=== PATIENT | female | born 1965 | race Two or more races ===

== ENCOUNTER 2017-02-22 10:15 | Emergency (ER) | payer OTHER ==
--- NOTE | 2017-02-22 11:49 | UC ---
Throat Pain/Nasal Chai HPI - HPI Summary HPI Summary: right lateral epicondyle pain and bottom of right foot pain has been going on for 5 days--no known trauma - History of Current Complaint Hx Obtained From: Patient Hx Last Menstrual Period: IUD ?: No Onset/Duration: Sudden Onset, Lasting Days - 5, Still Present Severity: Moderate Cough: None Associated Signs & Symptoms: Positive: Negative <Abimbola Ronquillo - Last Filed: 02/22/17 18:24> <Lian Dumont - Last Filed: 02/23/17 06:57> - History of Current Complaint Chief Complaint: UCGeneralIllness Stated Complaint: ARM/LEG PAIN Time Seen by Provider: 02/22/17 11:30 - Allergies/Home Medications Allergies/Adverse Reactions: Allergies Allergy/AdvReac Type Severity Reaction Status Date / Time No Known Allergies Allergy Verified 02/22/17 10:23 Home Medications: Home Medications Labetalol TAB* [Trandate TAB*] 1 tab PO DAILY 02/22/17 [History Confirmed ] PMH/Surg Hx/FS Hx/Imm Hx Previously Healthy: No Cardiovascular History: Hypertension Other History Of: Negative For: HIV, Hepatitis B, Hepatitis C, Anticoagulant Therapy - Surgical History Surgical History: Yes Surgery Procedure, Year, and Place: appendix. gallbladder. x3 - Family History Known Family History: Positive: None, Hypertension Negative: Cardiac Disease - Social History Occupation: Employed Full-time Lives: With Family Alcohol Use: Occasionally Alcohol Amount: once a month Substance Use Type: None Substance Use Comment - Amount & Last Used: norco Smoking Status (MU): Former Smoker Type: Cigarettes Length of Time of Smoking/Using Tobacco: 20 years Have You Smoked in the Last Year: No When Did the Patient Quit Smoking/Using Tobacco: 2007 - Immunization History Most Recent Influenza Vaccination: no up to date Most Recent Tetanus Shot: unsure Most Recent Pneumonia Vaccination: none <Abimbola Ronquillo - Last Filed: 02/22/17 18:24> Review of Systems Constitutional: Negative Skin: Negative Eyes: Negative ENT: Negative Respiratory: Negative Cardiovascular: Negative Gastrointestinal: Negative Genitourinary: Negative Motor: Negative Neurovascular: Negative Musculoskeletal: Arthralgia - right foot and elbow Neurological: Negative Psychological: Negative All Other Systems Reviewed And Are Negative: Yes <Abimbola Ronquillo - Last Filed: 02/22/17 18:24> Physical Exam Triage Information Reviewed: Yes Appearance: Well-Appearing, Well-Nourished, Pain Distress - mild Vital Signs: Initial Vital Signs Temp 98.5 F 02/22/17 10:18 Pulse 67 02/22/17 10:18 Resp 18 02/22/17 10:18 BP 188/111 02/22/17 10:18 Pulse Ox 97 02/22/17 10:18 Vital Signs Reviewed: Yes Eye Exam: Normal Eyes: Positive: Conjunctiva Clear ENT Exam: Normal ENT: Positive: Normal ENT inspection, Hearing grossly normal. Negative: Nasal congestion, Nasal drainage, Trismus, Muffled/hoarse voice Dental Exam: Normal Neck exam: Normal Neck: Positive: Supple, Nontender Respiratory Exam: Normal Respiratory: Positive: Chest non-tender, No respiratory distress, No accessory muscle use Cardiovascular Exam: Normal Cardiovascular: Positive: RRR, Pulses Normal, Brisk Capillary Refill Musculoskeletal Exam: Normal Musculoskeletal: Positive: Strength Intact, ROM Intact, No Edema Neurological Exam: Normal Neurological: Positive: Alert, Muscle Tone Normal Psychological Exam: Normal Psychological: Positive: Normal Response To Family, Age Appropriate Behavior Skin Exam: Normal <Abimbola Ronquillo - Last Filed: 02/22/17 18:24> Vital Signs: Initial Vital Signs Temp 98.5 F 02/22/17 10:18 Pulse 67 02/22/17 10:18 Resp 18 02/22/17 10:18 BP 188/111 02/22/17 10:18 Pulse Ox 97 02/22/17 10:18 <Lian Dumont - Last Filed: 02/23/17 06:57> Throat Pain/Nasal Course/Dx - Course Assessment/Plan: cam boot, tendon wrap, short course of po steroids , rest off work for 3 days, follow with ortho, plantar tendon exercises - Differential Dx/Diagnosis Differential Diagnosis/HQI/PQRI: Other - chronic orthopedic issues Provider Diagnoses: Right lateral epicondolytis, right plantar tendonitis <Abimbola Ronquillo - Last Filed: 02/22/17 18:24> Discharge <Abimbola Ronquillo - Last Filed: 02/22/17 18:24> <Lian Dumont - Last Filed: 02/23/17 06:57> - Discharge Plan Condition: Stable Disposition: HOME Prescriptions: Methylprednisolone [Medrol Dosepak 4 MG*] 1 pkt PO .SEE GIANCARLO INSTRUCTION #1 giancarlo Patient Education Materials: Methylprednisolone (By mouth), Plantar Fasciitis Exercises (GEN), Tennis Elbow (ED), Plantar Fasciitis (ED) Forms: *Work Release Referrals: Jame Berger MD [Medical Doctor] - 4 Days Attestation Statement User Type: Provider - I was available for consult. This patient was seen by the [facility]. The patient was not presented to, seen by, or examined by me. -Liban <Lian Dumont - Last Filed: 02/23/17 06:57>
[2017-02-22 12:23] VITALS: BP 169/88
--- NOTE | 2017-02-22 13:20 | RAD ---
Indication: Right calcaneal sprain. 3 views of the right foot demonstrates inferior calcaneal spur. There is no fracture or dislocation identified. No other bone or joint abnormality is identified. IMPRESSION: Inferior calcaneal spur. No fracture is noted.
== END 2017-02-22 12:39 | disposition home or self-care (01) ==
LOC: UCEAST 10:15
DX: M77.11 Lateral epicondylitis, right elbow (principal); M77.8 Other enthesopathies, not elsewhere classified; I10 Essential (primary) hypertension
CPT/HCPCS: 99213; G0463

== ENCOUNTER 2018-09-26 20:49 | Emergency (ER) | payer OTHER ==
--- OUTSIDE RECORDS SUMMARY | 2018-09-26 20:56 | XMS REPORT | Continuity of Care Document ---
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 ETOH Use Occasionally consumes alcohol Tobacco Use Start: Unknown End: Patient is a former smoker Unknown Recreational Drug Use Denies Drug Use Smoking Status Reviewed: 08/29/18 Patient is a former smoker Allergies, Adverse Reactions, Alerts Description No Known Drug Allergies Medications Medication Date Status Form Strength Qnty SIG Indications Ordering Provider Flector 06/27/ Active Patches 1.3% 10unit si Perez2017 s apply to Antione, affected DO, MPH area every 12 hours chronic pain patient Tizanidine HCL 01/20/ Active Tablets 4mg 30tabs si/2-1 Perez2017 by mouth Antione, every DO, MPH night Oxycodone HCL 03/15/ Active Tablets 5mg 90tabs si by Perez2016 mouth Antione, every 8 DO, MPH hours as directed chronic pain patient. Labetalol HCL / Active Tablets 200mg 1 by mouth Unknown 0000 twice daily Nifedipine ER / Active Tablets 90mg 1 by mouth Unknown 0000 ER 24HR daily Metoprolol / Active Tablets 25mg 1 by mouth Unknown Succinate ER 0000 ER 24HR every day Cyclobenzaprine 04/12/ Hx Tablets 5mg 30tabs si/2- Perez, HCL 2016 - 1 by mouth Antione, 01/20/ every DO, MPH 2018 evening hours as directed chronic pain. Tizanidine HCL 03/29/ Hx Tablets 4mg 30tabs si/2-1 Perez, 2016 - by mouth Antione, 04/12/ qpm as DO, MPH 2016 directed Oxycodone-Acetami / Hx Tablets 5-325mg si by Unknown nophen 0000 - mouth in 03/15/ the 2016 morning and 2 by mouth at night Immunizations Description No Information Available Vital Signs Date Vital Result Comment 08/29/2018 3:23pm BP Systolic 128 mmHg BP Diastolic 78 mmHg Heart Rate 74 /min Respiratory Rate 20 /min Height 60 inches 5'0" Weight 151.00 lb Pain Level 5 Pain at this time. Pain Level With Medicine 4 on average with meds Pain Level Without Medicine 05/31 without meds BMI (Body Mass Index) 29.5 kg/m2 07/27/2018 3:33pm BP Systolic 120 mmHg BP Diastolic 74 mmHg Heart Rate 76 /min Respiratory Rate 20 /min Height 60 inches 5'0" Weight 151.00 lb Pain Level 5 Pain at this time. Pain Level With Medicine 4 on average with meds Pain Level Without Medicine 05/31 without meds BMI (Body Mass Index) 29.5 kg/m2 06/27/2018 3:36pm BP Systolic 128 mmHg BP Diastolic 86 mmHg Heart Rate 84 /min Respiratory Rate 20 /min Height 60 inches 5'0" Weight 151.00 lb Pain Level 7 Pain at this time. Pain Level With Medicine 6 on average with meds Pain Level Without Medicine 05/31 without meds BMI (Body Mass Index) 29.5 kg/m2 05/15/2018 3:27pm BP Systolic 136 mmHg BP Diastolic 86 mmHg Heart Rate 84 /min Respiratory Rate 20 /min Height 60 inches 5'0" Weight 150.00 lb Pain Level 4 Pain at this time. Pain Level With Medicine 3 on average with meds Pain Level Without Medicine 05/31 without meds BMI (Body Mass Index) 29.3 kg/m2 04/27/2018 3:33pm BP Systolic 126 mmHg BP Diastolic 74 mmHg Heart Rate 78 /min Respiratory Rate 20 /min Height 60 inches 5'0" Weight 151.00 lb Pain Level 5 Pain at this time. Pain Level With Medicine 4 on average with meds Pain Level Without Medicine 05/31 without meds BMI (Body Mass Index) 29.5 kg/m2 03/23/2018 10:24am BP Systolic 128 mmHg BP Diastolic 70 mmHg Heart Rate 70 /min Respiratory Rate 20 /min Height 60 inches 5'0" Weight 150.00 lb Pain Level 5 Pain at this time. Pain Level With Medicine 4 on average with meds Pain Level Without Medicine 05/31 without meds BMI (Body Mass Index) 29.3 kg/m2 02/21/2018 10:31am BP Systolic 130 mmHg BP Diastolic 80 mmHg Heart Rate 74 /min Respiratory Rate 20 /min Height 60 inches 5'0" Weight 148.00 lb Pain Level 7 Pain at this time. Pain Level With Medicine 6 on average with meds Pain Level Without Medicine 05/31 without meds BMI (Body Mass Index) 28.9 kg/m2 01/20/2018 10:55am BP Systolic 128 mmHg BP Diastolic 78 mmHg Heart Rate 74 /min Respiratory Rate 20 /min Height 60 inches 5'0" Weight 148.00 lb Pain Level 8 Pain at this time. Pain Level With Medicine 7 on average with meds Pain Level Without Medicine 05/31 without meds BMI (Body Mass Index) 28.9 kg/m2 12/21/2017 11:19am Respiratory Rate 20 /min Height 60 inches 5'0" Weight 147.00 lb Pain Level 8 Pain at this time. Pain Level With Medicine 7 on average with meds Pain Level Without Medicine 05/31 without meds BMI (Body Mass Index) 28.7 kg/m2 11/09/2017 9:56am BP Systolic 130 mmHg BP Diastolic 86 mmHg Heart Rate 82 /min Respiratory Rate 20 /min Height 60 inches 5'0" Weight 152.00 lb Pain Level 6 Pain at this time. Pain Level With Medicine 5 on average with meds Pain Level Without Medicine 10 05/31 without meds BMI (Body Mass Index) 29.7 kg/m2 10/10/2017 9:31am BP Systolic 128 mmHg BP Diastolic 86 mmHg Heart Rate 84 /min Respiratory Rate 20 /min Height 60 inches 5'0" Weight 152.00 lb Pain Level 5 Pain at this time. Pain Level With Medicine 4 on average with meds Pain Level Without Medicine 05/31 without meds BMI (Body Mass Index) 29.7 kg/m2 09/09/2017 9:36am BP Systolic 126 mmHg BP Diastolic 74 mmHg Heart Rate 80 /min Respiratory Rate 20 /min Height 60 inches 5'0" Weight 144.00 lb Pain Level 5 Pain at this time. Pain Level With Medicine 4 on average with meds Pain Level Without Medicine 05/31 without meds BMI (Body Mass Index) 28.1 kg/m2 08/11/2017 9:10am BP Systolic 126 mmHg BP Diastolic 76 mmHg Heart Rate 78 /min Respiratory Rate 20 /min Height 60 inches 5'0" Weight 144.00 lb Pain Level 5 Pain at this time. Pain Level With Medicine 4 on average with meds Pain Level Without Medicine 05/31 without meds BMI (Body Mass Index) 28.1 kg/m2 07/13/2017 9:08am BP Systolic 156 mmHg BP Diastolic 84 mmHg Heart Rate 82 /min Respiratory Rate 18 /min Height 60 inches 5'0" Weight 144.00 lb Pain Level 6 Pain at this time. Pain Level With Medicine 5 on average with meds Pain Level Without Medicine 05/31 without meds BMI (Body Mass Index) 28.1 kg/m2 06/14/2017 9:12am BP Systolic 122 mmHg BP Diastolic 74 mmHg Heart Rate 76 /min Respiratory Rate 20 /min Height 60 inches 5'0" Weight 144.00 lb Pain Level 5 Pain at this time. Pain Level With Medicine 4 on average with meds Pain Level Without Medicine 05/31 without meds BMI (Body Mass Index) 28.1 kg/m2 05/12/2017 9:07am BP Systolic 128 mmHg BP Diastolic 82 mmHg Heart Rate 76 /min Respiratory Rate 20 /min Height 60 inches 5'0" Weight 144.00 lb Pain Level 5 Pain at this time. Pain Level With Medicine 4 on average with meds Pain Level Without Medicine 10 05/31 without meds Pain Level After Procedure 1 BP Systolic Recheck 126 mmHg Pulse: 74 BP Diastolic Recheck 80 mmHg Pulse: 74 BMI (Body Mass Index) 28.1 kg/m2 04/12/2017 9:09am BP Systolic 132 mmHg BP Diastolic 80 mmHg Heart Rate 76 /min Respiratory Rate 16 /min Height 60 inches 5'0" Weight 146.00 lb Pain Level 5 5/10, Pain at this time., Pain at this time. Pain Level With Medicine 5 5, on average with meds, on average with meds Pain Level Without Medicine 10 05/31 without meds BMI (Body Mass Index) 28.5 kg/m2 03/29/2017 10:10am BP Systolic 146 mmHg BP Diastolic 88 mmHg Heart Rate 84 /min Respiratory Rate 20 /min doing well today Height 60 inches 5'0" Weight 147.00 lb Pain Level 6 Pain at this time. Pain Level With Medicine 5 on average with meds Pain Level Without Medicine 10 10 without meds BMI (Body Mass Index) 28.7 kg/m2 03/15/2017 9:30am BP Systolic 128 mmHg BP Diastolic 78 mmHg Heart Rate 76 /min Respiratory Rate 18 /min Height 60 inches 5'0" Weight 147.00 lb Pain Level 5 Pain at this time. Pain Level Without Medicine 10 05/31 without meds BMI (Body Mass Index) 28.7 kg/m2 Results Description No Information Available Procedures Date Code Description Status 06/27/2018 00312 Omt 5-6 Body Regions Completed 05/15/2018 97809 Omt 3-4 Body Regions Completed 03/23/2018 63377 Omt 3-4 Body Regions Completed 02/21/2018 47451 Omt 3-4 Body Regions Completed 10/10/2017 40332 Omt 3-4 Body Regions Completed 08/11/2017 53683 Omt 3-4 Body Regions Completed 06/14/2017 37727 Test Autonomic Nervous System, Sudomotor Completed 05/12/2017 74278 Omt 1-2 Body Regions Completed 05/12/2017 88661 Inject Tendon/Ligament Completed 04/12/2017 92315 Omt 3-4 Body Regions Completed Encounters Type Date Location Provider Dx Diagnosis Office Visit 07/27/2018 Main Office as Of Antione Perez DO [id number] Other chronic pain 3:30p 09/22/13 MPH M54.2 Cervicalgia M54.5 Low back pain M53.3 Sacrococcygeal disorders, not elsewhere classified M25.552 Pain in left hip M25.551 Pain in right hip Z79.891 [facility] (current) use of opiate analgesic Office Visit 06/27/2018 3:45p Main Office as Antione Perez [id number] Other chronic Of 09/22/13 DO, MPH pain M54.2 Cervicalgia M99.01 Segmental and somatic dysfunction of cervical region M54.5 Low back pain M99.03 Segmental and somatic dysfunction of lumbar region M54.6 Pain in thoracic spine M99.02 Segmental and somatic dysfunction of thoracic region M53.3 Sacrococcygeal disorders, not elsewhere classified M99.04 Segmental and somatic dysfunction of sacral region M25.552 Pain in left hip M25.551 Pain in right hip Z79.891 [facility] (current) use of opiate analgesic M99.05 Segmental and somatic dysfunction of pelvic region Office Visit 05/15/2018 4:15p Main Office as Antione Perez [id number] Other chronic Of 09/22/13 DO, MPH pain M54.5 Low back pain M54.2 Cervicalgia M99.01 Segmental and somatic dysfunction of cervical region M54.6 Pain in thoracic spine M99.02 Segmental and somatic dysfunction of thoracic region M25.511 Pain in right shoulder M25.512 Pain in left shoulder M99.07 Segmental and somatic dysfunction of upper extremity 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 Office Visit 04/27/2018 3:45p Main Office as Antione Perez [id number] Other chronic Of 09/22/13 DO, MPH pain M54.2 Cervicalgia M54.6 Pain in thoracic spine M54.5 Low back pain Z79.891 [facility] (current) use of opiate analgesic Office Visit 03/23/2018 11:00a Main Office as Antione Perez [id number] Other chronic Of 09/22/13 DO, MPH pain M54.2 Cervicalgia M99.01 Segmental and somatic dysfunction of cervical region M54.5 Low back pain M99.03 Segmental and somatic dysfunction of lumbar region M54.6 Pain in thoracic spine M99.02 Segmental and somatic dysfunction of thoracic region Z71.89 Other specified counseling 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 Office Visit 02/21/2018 10:30a Main Office as Antione Perez, [id number] Other chronic Of 09/22/13 DO, MPH pain M54.2 Cervicalgia M99.01 Segmental and somatic dysfunction of cervical region M54.6 Pain in thoracic spine M99.02 Segmental and somatic dysfunction of thoracic region M54.5 Low back pain M99.03 Segmental and somatic dysfunction of lumbar region R53.83 Other fatigue 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 Z71.89 Other specified counseling Office Visit 01/20/2018 11:15a Main Office as Antione Perez, [id number] Other chronic Of 09/22/13 DO, MPH pain M54.2 Cervicalgia M54.6 Pain in thoracic spine M25.511 Pain in right shoulder M79.1 Myalgia Z71.89 Other specified counseling 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 Office Visit 12/21/2017 11:15a Main Office as Antione Perez [id number] Other chronic Of 09/22/13 DO, MPH pain M54.2 Cervicalgia M54.6 Pain in thoracic spine Z71.89 Other specified counseling Z79.891 [facility] (current) use of opiate analgesic Office Visit 11/09/2017 9:45a Main Office as Antione Perez, [id number] Other chronic Of 09/22/13 DO, MPH pain M54.2 Cervicalgia M54.6 Pain in thoracic spine M77.11 Lateral epicondylitis, right elbow Z79.891 [facility] (current) use of opiate analgesic Office Visit 10/10/2017 9:30a Main Office as Antione Perez, [id number] Other chronic Of 09/22/13 DO, MPH pain M54.2 Cervicalgia M99.01 Segmental and somatic dysfunction of cervical region M54.6 Pain in thoracic spine M99.02 Segmental and somatic dysfunction of thoracic region M54.5 Low back pain M99.03 Segmental and somatic dysfunction of lumbar region M77.11 Lateral epicondylitis, right elbow 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 Office Visit 09/09/2017 10:45a Main Office as Antione Perez [id number] Other chronic Of 09/22/13 DO, MPH pain M54.2 Cervicalgia M54.6 Pain in thoracic spine M79.1 Myalgia M54.5 Low back pain 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 Office Visit 08/11/2017 9:15a Main Office as Antione Perez, G89.29 Other chronic Of 09/22/13 DO, MPH pain M54.2 Cervicalgia M99.01 Segmental and somatic dysfunction of cervical region M54.6 Pain in thoracic spine M99.02 Segmental and somatic dysfunction of thoracic region M25.512 Pain in left shoulder M99.07 Segmental and somatic dysfunction of upper extremity M79.1 Myalgia M54.5 Low back pain 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 Office Visit 07/13/2017 9:15a Main Office as Antione Perez [id number] Other chronic Of 09/22/13 DO, MPH pain M54.5 Low back pain M79.604 Pain in right leg M54.2 Cervicalgia 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 Office Visit 06/14/2017 9:00a Main Office as Antione Perez G89.29 Other chronic Of 09/22/13 DO, MPH pain M54.5 Low back pain M77.11 Lateral epicondylitis, right elbow Z79.891 [facility] (current) use of opiate analgesic G90.3 Multi-system degeneration of the autonomic nervous system Office Visit 05/12/2017 9:15a Main Office as Antione Perez G89.29 Other chronic Of 09/22/13 DO, MPH pain M54.5 Low back pain M99.03 Segmental and somatic dysfunction of lumbar region M54.16 Radiculopathy, lumbar region M79.605 Pain in left leg M79.604 Pain in right leg M54.2 Cervicalgia M99.01 Segmental and somatic dysfunction of cervical region M77.11 Lateral epicondylitis, right elbow Z79.891 [facility] (current) use of opiate analgesic Office Visit 04/12/2017 9:00a Main Office as Adwoa Cruz [id number] Other chronic Of 09/22/13 [facility] pain M54.5 Low back pain M99.03 Segmental and somatic dysfunction of lumbar region M54.16 Radiculopathy, lumbar region M79.604 Pain in right leg M79.605 Pain in left leg M99.01 Segmental and somatic dysfunction of cervical region 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 M99.07 Segmental and somatic dysfunction of upper extremity M54.6 Pain in thoracic spine M99.02 Segmental and somatic dysfunction of thoracic region M54.2 Cervicalgia M62.830 Muscle spasm of back M77.11 Lateral epicondylitis, right elbow Z71.89 Other specified counseling Office Visit 03/29/2017 10:30a Main Office as Antione Perez, G89.29 Other chronic Of 09/22/13 DO MPH pain M54.5 Low back pain M79.604 Pain in right leg M79.605 Pain in left leg M54.16 Radiculopathy, lumbar region 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 Symptoms and complaints discussed and reviewed today. No significant changes in physical findings. Continue current medical pain management.M54.5 Low back painComments:Chronic. Symptoms and complaints discussed and reviewed today.No changes in physical findings. Patient is stable and comfortable when current medical therapy is rendered.M54.2 CervicalgiaComments:Chronic. Symptoms and complaints discussed and reviewed today. No significant changes in physical findings. Continue current medical pain management. ~B_ ~b_M25.552 Pain in left hipComments:Chronic. Symptoms and complaints discussed and reviewed today. No significant changes in physical findings. Continue current medical pain management.M25.551 Pain in right hipComments:Chronic. Symptoms and complaints discussed and reviewed today. No significant changes in physical findings. Continue current medical pain management.M25.521 Pain in right elbowComments:Chronic. Symptoms and complaints discussed and reviewed today. No significant changes in physical findings. Continue current medical pain management.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New Labs:Urine Drug Screen, Ordered: 08/29/18Comments:Urine drug screen sample taken today to monitor opiate use and to monitor use of illicit substances.Will discuss results at next appointment.The following tests were ordered:6 AM, AMPH, ALEXSANDRA, EDIN, BUP, CARIS, COCM, COT, ETG, FENT, MCSHSG, OPI, OXY, PCP, TAPEN, XTSY, ZOLP. ~I_A urine drug test (UDT) was ordered for this patient and collected on site today. Creatinine has been ordered as well for specimen validity, not for kidney function. Preliminary UDT results are not final and should not be used to determine patient care or plan of treatment. Initially a qualitative immunoassay screen will be done. Any inconsistent or positive findings will be further tested with a more comprehensive quantitative confirmation LCMS study. It is part of the treatment process of prescribing controlled substances and is considered standard of care. ~i_AllComments:All above symptoms and complaints discussed as well as diagnoses reviewed.Continue trial of opioid pain management - note changes below; injection therapy, osteopathic manipulation (OMT), PT / modalities, and consults as needed to manage chronic pain.Side effects discussed; anticipatory guidance given. Patient clearly understands and agrees with all medical treatments and suggestions. All medicines prescribed are adequate and appropriate for this patient's complaint of pain, medical history, physical, and personal goals.Goals of Treatment are to provide adequate and appropriate multidisciplinary medical pain management to increase/ maintain patient's quality of life and functionality while maintaining satisfactory side effect profile and minimizing penitentiary end-organ damage. Activity as toleratedContinue with PCP
[2018-09-26 20:58] VITALS: BP 154/100
[2018-09-26 21:20] LABS: Influenza A Molecular NEGATIVE (Negative); Influenza B Molecular NEGATIVE (Negative)
--- NOTE | 2018-09-26 21:43 | UC ---
Respiratory Complaint HPI - HPI Summary HPI Summary: ONSET LAST NIGHT OF COUGH, CONGESTION, HEADACHE, BODY ACHES. HAD SUBJECTIVE FEVER INITIALLY BUT NONE NOW. HAS NAUSEA BUT NO VOMITING. NO FLU SHOT THIS SEASON. - History of Current Complaint Chief Complaint: UCGeneralIllness Stated Complaint: FEVER FLU LIKE SYM Time Seen by Provider: 09/26/18 21:09 Hx Obtained From: Patient Hx Last Menstrual Period: IUD Onset/Duration: Gradual Onset, Lasting Hours, Still Present Timing: Constant Severity Initially: Moderate Severity Currently: Moderate Pain Intensity: 7 Pain Scale Used: 0-10 Numeric Character: Cough: Nonproductive Aggravating Factors: Nothing Alleviating Factors: Nothing Associated Signs And Symptoms: Positive: Fever, Chills, URI, Nasal Congestion. Negative: Dyspnea - Allergies/Home Medications Allergies/Adverse Reactions: Allergies Allergy/AdvReac Type Severity Reaction Status Date / Time No Known Allergies Allergy Verified 09/26/18 20:58 PMH/Surg Hx/FS Hx/Imm Hx - Additional Past Medical History Additional PMH: CHRONIC BACK PAIN Endocrine History: Diabetes Cardiovascular History: Hypertension Respiratory History: Asthma Other History Of: Negative For: HIV, Hepatitis B, Hepatitis C, Anticoagulant Therapy - Surgical History Surgical History: Yes Surgery Procedure, Year, and Place: appendix. gallbladder. x3 - Family History Known Family History: Positive: Hypertension Negative: Cardiac Disease - Social History Alcohol Use: Occasionally Alcohol Amount: once a month Substance Use Type: None Substance Use Comment - Amount & Last Used: norco Smoking Status (MU): Former Smoker Type: Cigarettes Length of Time of Smoking/Using Tobacco: 20 years Have You Smoked in the Last Year: No When Did the Patient Quit Smoking/Using Tobacco: 2007 - Immunization History Most Recent Influenza Vaccination: no up to date Most Recent Tetanus Shot: unsure Most Recent Pneumonia Vaccination: none Review of Systems All Other Systems Reviewed And Are Negative: Yes Constitutional: Positive: Fever, Chills, Fatigue ENT: Positive: Sore Throat, Nasal Discharge Respiratory: Positive: Cough Cardiovascular: Positive: Negative Gastrointestinal: Positive: Negative Musculoskeletal: Positive: Arthralgia, Myalgia Neurological: Positive: Headache Physical Exam Triage Information Reviewed: Yes Appearance: No Pain Distress, Well-Nourished, Ill-Appearing - MODERATELY Vital Signs: Initial Vital Signs Temp 98.9 F 09/26/18 20:54 Pulse 110 02/05/19 20:54 Resp 18 09/26/18 20:54 BP 154/100 09/26/18 20:54 Pulse Ox 99 09/26/18 20:54 Laboratory Tests 09/26/18 21:09 Influenza A (Rapid) Negative Influenza B (Rapid) Negative Vital Signs Reviewed: Yes Eyes: Positive: Conjunctiva Clear ENT: Positive: Hearing grossly normal, Pharynx normal, TMs normal Neck: Positive: Supple, Nontender, No Lymphadenopathy Respiratory Exam: Normal Cardiovascular: Positive: Pulses Normal, Tachycardia Abdomen Description: Positive: Soft Musculoskeletal: Positive: No Edema Neurological: Positive: Alert Psychological: Positive: Age Appropriate Behavior Skin: Negative: Rashes UC Diagnostic Evaluation - Laboratory O2 Sat by Pulse Oximetry: 99 Respiratory Course/Dx - Differential Dx/Diagnosis Provider Diagnosis: Acute viral syndrome Discharge - Sign-Out/Discharge Documenting (check all that apply): Patient Departure All imaging exams completed and their final reports reviewed: No Studies - Discharge Plan Condition: Stable Disposition: HOME Patient Education Materials: Viral Syndrome (ED) Referrals: Anjel BENÍTEZ,Muna Handley [Primary Care Provider] - If Needed Additional Instructions: FLU SWAB NEGATIVE. YOUR SYMPTOMS ARE LIKELY VIRALLY MEDIATED AND SHOULD RESOLVE ON THEIR OWN WITH TIME. NO INDICATION FOR ANTIBIOTICS AT PRESENT. REST, HYDRATE , OTC MEDS NEEDED. SEEK FOLLOW-UP IF YOU ARE NOT IMPROVING OVER THE NEXT 1-2 WEEKS. USE OTC AFRIN FOR NASAL CONGESTION. 2 SPRAYS IN EACH NOSTRIL TWICE DAILY NEEDED. DO NOT USE FOR MORE THAN 3-4 DAYS IN A ROW TO PREVENT DEVELOPING REBOUND CONGESTION. - Billing Disposition and Condition Condition: STABLE Disposition: Home
== END 2018-09-26 21:55 | disposition home or self-care (01) ==
LOC: UCEAST 20:49
DX: B34.9 Viral infection, unspecified (principal); E11.9 Type 2 diabetes mellitus without complications; I10 Essential (primary) hypertension; J45.909 Unspecified asthma, uncomplicated; Z87.891 Personal history of nicotine dependence
CPT/HCPCS: 99211; G0463

== ENCOUNTER 2018-11-16 08:31 | Emergency (ER) | payer OTHER ==
--- OUTSIDE RECORDS SUMMARY | 2018-11-16 08:39 | XMS REPORT | Continuity of Care Document ---
:1965 External Reference #:[id number] Author Name Antione Perez DO, MPH Address [address] [place] [address] [address] [place] [address] Care Team Providers Name Role Phone Muna Hobbs PA Care Team Information Housing Counselor Unavailable Muna Hobbs PA Primary Care Physician Unavailable Payers Date Identification Numbers Payment Provider Subscriber Policy Number: [id number] [employer]/Tantaline Jennifer Headley PayID: [id number] 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 ETOH Use Occasionally consumes alcohol Tobacco Use Start: Unknown End: Patient is a former smoker Unknown Recreational Drug Use Denies Drug Use Smoking Status Reviewed: 11/02/18 Patient is a former smoker Allergies, Adverse Reactions, Alerts Description No Known Drug Allergies Medications Medication Date Status Form Strength Qnty SIG Indications Ordering Provider Aidan 06/27/ Active Patches 1.3% 10unit si [email or web address] s apply to Antione, affected DO, MPH area every 12 hours chronic pain patient Tizanidine HCL 01/20/ Active Tablets 4mg 30tabs si/2-1 Perez, 2017 by mouth Antione, every DO, MPH night Oxycodone HCL 03/15/ Active Tablets 5mg 90tabs si by Perez2016 mouth Antione, every 8 DO, MPH hours as directed chronic pain patient. Labetalol HCL / Active Tablets 200mg 1 by mouth Unknown 0000 twice daily Nifedipine ER / Active Tablets 90mg 1 by mouth Unknown 0000 ER 24HR daily Cyclobenzaprine 04/12/ Hx Tablets 5mg 30tabs si2- Chris, HCL 2016 - 1 by mouth Antione, 01/20/ every DO, MPH 2018 evening hours as directed chronic pain. Tizanidine HCL 03/29/ Hx Tablets 4mg 30tabs si/2-1 Perez, 2016 - by mouth Antione, 04/12/ qpm as DO, MPH 2016 directed Metoprolol / Hx Tablets 25mg 1 by mouth Unknown Succinate ER 0000 - ER 24HR every day 2018 Oxycodone-Acetami / Hx Tablets 5-325mg si by Unknown nophen 0000 - mouth in 03/15/ the 2016 morning and 2 by mouth at night Immunizations Description No Information Available Vital Signs Date Vital Result Comment 11/02/2018 3:39pm BP Systolic 136 mmHg BP Diastolic 86 mmHg Heart Rate 84 /min Respiratory Rate 20 /min Height 60 inches 5'0" Weight 154.00 lb Pain Level 7 Pain at this time. Pain Level With Medicine 6 on average with meds Pain Level Without Medicine 05/31 without meds BMI (Body Mass Index) 30.1 kg/m2 10/05/2018 3:40pm BP Systolic 136 mmHg BP Diastolic 84 mmHg Heart Rate 86 /min Respiratory Rate 20 /min Height 60 inches 5'0" Weight 151.00 lb Pain Level 4 Pain at this time. Pain Level With Medicine 4 on average with meds Pain Level Without Medicine 05/31 without meds BMI (Body Mass Index) 29.5 kg/m2 08/29/2018 3:23pm BP Systolic 128 mmHg BP [...] Information Available Procedures Date Code Description Status 10/05/2018 33967 Omt 3-4 Body Regions Completed 10/05/2018 68680 Test Autonomic Nervous System, Sudomotor Completed 10/05/2018 94783 Test Autonomic Nervous System, Cardiovagal Innervation Completed 06/27/2018 55178 Omt 5-6 Body Regions Completed 05/15/2018 18169 Omt 3-4 Body Regions Completed 03/23/2018 80155 Omt 3-4 Body Regions Completed 02/21/2018 35609 Omt 3-4 Body Regions Completed 10/10/2017 05929 Omt 3-4 Body Regions Completed 08/11/2017 62544 Omt 3-4 Body Regions Completed 06/14/2017 03274 Test Autonomic Nervous System, Sudomotor Completed 05/12/2017 80317 Omt 1-2 Body Regions Completed 05/12/2017 26899 Inject Tendon/Ligament Completed 04/12/2017 81775 Omt 3-4 Body Regions Completed Encounters Type Date Location Provider Dx Diagnosis Office Visit 10/05/2018 Main Office as Of Antione Perez DO G89.29 Other chronic pain 3:45p 09/22/13 MPH M54.5 Low back pain M99.03 Segmental and somatic dysfunction of lumbar region M99.01 Segmental and somatic dysfunction of cervical region M54.6 Pain in thoracic spine M99.02 Segmental and somatic dysfunction of thoracic region G90.3 Multi-system degeneration of the autonomic nervous system Z79.891 senior living (current) use of opiate analgesic Office Visit 08/29/2018 3:30p Main Office as Antione Perez G89.29 Other chronic Of 09/22/13 DO, MPH pain M54.5 Low back pain M54.2 Cervicalgia M25.552 Pain in left hip M25.551 Pain in right hip M25.521 Pain in right elbow Z79.891 senior living (current) use of opiate analgesic Office Visit 07/27/2018 3:30p Main Office as Antione Perez G89.29 Other chronic Of 09/22/13 DO, MPH pain M54.2 Cervicalgia M54.5 Low back pain M53.3 Sacrococcygeal disorders, not elsewhere classified M25.552 Pain in left hip M25.551 Pain in right hip 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 Office Visit [...] hip M25.551 Pain in right hip 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 M99.05 Segmental and somatic dysfunction of pelvic region Office Visit 05/15/2018 4:15p Main Office as Antione Perez, G89.29 Other chronic Of 09/22/13 DO, MPH pain M54.5 Low back pain M54.2 Cervicalgia M99.01 Segmental and somatic dysfunction of cervical region M54.6 Pain in thoracic spine M99.02 Segmental and somatic dysfunction of thoracic region M25.511 Pain in right shoulder M25.512 Pain in left shoulder M99.07 Segmental and somatic dysfunction of upper extremity Z79.891 senior living (current) use of opiate analgesic Office Visit 04/27/2018 3:45p Main Office as Antione Perez G89.29 Other chronic Of 09/22/13 DO, MPH pain M54.2 Cervicalgia M54.6 Pain in thoracic spine M54.5 Low back pain Z79.891 senior living (current) use of opiate analgesic Office Visit 03/23/2018 11:00a Main Office as Antione Perez G89.29 Other chronic Of 09/22/13 DO, MPH pain M54.2 Cervicalgia M99.01 Segmental and somatic dysfunction of cervical region M54.5 Low back pain M99.03 Segmental and somatic dysfunction of lumbar region M54.6 Pain in thoracic spine M99.02 Segmental and somatic dysfunction of thoracic region Z71.89 Other specified counseling Z79.891 senior living (current) use of opiate analgesic Office Visit 02/21/2018 10:30a Main Office as Antione Perez G89.29 Other chronic Of 09/22/13 DO, MPH pain M54.2 Cervicalgia M99.01 Segmental and somatic dysfunction of cervical region M54.6 Pain in thoracic spine M99.02 Segmental and somatic dysfunction of thoracic region M54.5 Low back pain M99.03 Segmental and somatic dysfunction of lumbar region R53.83 Other fatigue 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 Z71.89 Other specified counseling Office Visit 01/20/2018 11:15a Main Office as Antione Perez, G89.29 Other chronic Of 09/22/13 DO, MPH pain M54.2 Cervicalgia M54.6 Pain in thoracic spine M25.511 Pain in right shoulder M79.1 Myalgia Z71.89 Other specified counseling 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 Office Visit 12/21/2017 11:15a Main Office as Antione Perez, G89.29 Other chronic Of 09/22/13 DO, MPH pain M54.2 Cervicalgia M54.6 Pain in thoracic spine Z71.89 Other specified counseling 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 Office Visit 11/09/2017 9:45a Main Office as Antione Perez, G89.29 Other chronic Of 09/22/13 DO, MPH pain M54.2 Cervicalgia M54.6 Pain in thoracic spine M77.11 Lateral epicondylitis, right elbow 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 Office Visit 10/10/2017 9:30a Main Office as Antione Perez, G89.29 Other chronic Of 09/22/13 DO, MPH pain M54.2 Cervicalgia M99.01 Segmental and somatic dysfunction of cervical region M54.6 Pain in thoracic spine M99.02 Segmental and somatic dysfunction of thoracic region M54.5 Low back pain M99.03 Segmental and somatic dysfunction of lumbar region M77.11 Lateral epicondylitis, right elbow 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 Office Visit 09/09/2017 10:45a Main Office as Antione Perez, G89.29 Other chronic Of 09/22/13 DO, MPH pain M54.2 Cervicalgia M54.6 Pain in thoracic spine M79.1 Myalgia M54.5 Low back pain 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 Office Visit [...] M79.1 Myalgia M54.5 Low back pain 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 Office Visit 07/13/2017 9:15a Main Office as Antione Perez G89.29 Other chronic Of 09/22/13 DO, MPH pain M54.5 Low back pain M79.604 Pain in right leg M54.2 Cervicalgia Z79.891 senior living (current) use of opiate analgesic Office Visit 06/14/2017 9:00a Main Office as Antione Perez G89.29 Other chronic Of 09/22/13 DO, MPH pain M54.5 Low back pain M77.11 Lateral epicondylitis, right elbow Z79.891 senior living (current) use of opiate analgesic G90.3 Multi-system [...] region M77.11 Lateral epicondylitis, right elbow 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 Office Visit 04/12/2017 9:00a Main Office as Adwoa Cruz G89.29 Other chronic Of 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/13 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 M54.5 Low back pain M99.03 Segmental and somatic dysfunction of lumbar region M54.16 Radiculopathy, lumbar region M79.604 Pain in right leg M79.605 Pain in left leg M99.01 Segmental and somatic dysfunction of cervical region 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 M99.07 Segmental and somatic dysfunction of upper extremity M54.6 Pain in thoracic spine M99.02 Segmental and somatic dysfunction of thoracic region M54.2 Cervicalgia M62.830 Muscle spasm of back M77.11 Lateral epicondylitis, right elbow Z71.89 Other specified counseling Office Visit 03/29/2017 10:30a Main Office as Antione Perez, G89.29 Other chronic Of 09/22/13 , MPH pain M54.5 Low back pain M79.604 Pain in right leg M79.605 Pain in left leg M54.16 Radiculopathy, lumbar region Z79.891 senior living (current) use of opiate analgesic Office Visit 03/15/2017 9:00a Main Office as Antione Perez G89.29 Other chronic Of 09/22/13 , MPH pain M54.5 Low back pain E11.8 Type 2 diabetes mellitus with unspecified complications M79.604 Pain in right leg M79.605 Pain in left leg M54.16 Radiculopathy, lumbar region Z71.89 Other specified counseling Z71.3 Dietary counseling and surveillance Z79.891 senior living (current) use of opiate analgesic Plan of Treatment Future Appointment(s):12/05/2018 4:15 pm - Antione Perez DO, MPH at Main Office as Of 09/22/1402 - Antione Perez DO, [id number] Other chronic painComments:Chronic. Symptoms and complaints discussed and reviewed today. No significant changes in physical findings. Continue current medical pain management.M54.5 Low back painComments:Chronic. Symptoms and complaints discussed and reviewed today.No changes in physical findings. Patient is stable and comfortable when current medical therapy is rendered.M54.6 Pain in thoracic spineComments:Chronic.Symptoms and complaints discussed and reviewed today. No significant changes in physical findings. Continue current medical pain management.M54.2 CervicalgiaComments:Chronic. Symptoms and complaints discussed and reviewed today. No significant changes in physical findings. Continue current medical pain management.M25.552 Pain in left hipComments:Chronic. Symptoms and complaints discussed and reviewed today. No significant changes in physical findings. Continue current medical pain management.M25.551 Pain in right hipComments:Chronic. Symptoms and complaints discussed and reviewed today. No significant changes in physical findings. Continue current medical pain management.G90.3 Multi-system degeneration of the autonomic nervous systemComments:Sudomotor test report reviewed with the patient today. The test was Positive for possible autonomic dysfunction at this time. Will follow effects of pain and current medical treatment. Future testing will help to monitor the effects of chronic illness, pain and subsequent treatment on the autonomic nervous system. May retest in 3-6 monthsAlpha lipoic acid 100 - 200 mg tid. suggested to patient. Thishas been shown to help with the neuropathic component of pain and autonomic dysfunction.Z79.891 senior living (current) use of opiate analgesicNew Labs:Urine Drug Screen, Ordered: 11/02/18Comments:Urine drug screen sample taken today to monitor opiate use and to monitor use of illicit substances.Will discuss results at next appointment.The following tests were ordered:6 AM, AMPH, ALEXSANDRA, EDIN, BUP, CARIS, COCM, COT, ETG, FENT, MCSHSG, OPI, OXY, PCP, TAPEN, XTSY, ZOLP. 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 Activity as toleratedContinue with PCP
[2018-11-16 08:42] VITALS: BP 173/106
--- NOTE | 2018-11-16 08:57 | UC ---
General HPI - HPI Summary HPI Summary: Two days of cough and congestion. Subjective fever last night. Almost out of her inhaler. States she could hear wheezing in her chest. Tried taking nyquil last night but no relief. Did not take her BP meds yet this morning. Non smoker. No N/V/D. Developed rash on torso. Meds; Reviewed. 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 - History of Current Complaint Chief Complaint: UCRespiratory Stated Complaint: SORE THROAT FEVER EAR PAIN RASH Time Seen by Provider: 11/16/18 08:48 Hx Last Menstrual Period: IUD Pain Intensity: 7 - Allergy/Home Medications Allergies/Adverse Reactions: Allergies Allergy/AdvReac Type Severity Reaction Status Date / Time No Known Allergies Allergy Verified 11/16/18 08:42 Home Medications: Home Medications Alogliptin Benzoate [Alogliptin] 25 mg PO DAILY 11/16/18 [History Confirmed ] Losartan/Hydrochlorothiazide [Losartan Potassium/Hydroc 100-25 mg] 1 tab PO DAILY 11/16/18 [History Confirmed 11/16/18] NIFEdipine ER TAB* [Procardia Xl TAB*] 60 mg PO BID 11/16/18 [History Confirmed 11/16/18] oxyCODONE TAB* [Roxycodone TAB 5 mg*] 5 mg PO Q4H PRN 11/16/18 [History Confirmed 11/16/18] PMH/Surg Hx/FS Hx/Imm Hx Previously Healthy: Yes Cardiovascular History: Hypertension Respiratory History: Asthma Other History Of: Negative For: HIV, Hepatitis B, Hepatitis C, Anticoagulant Therapy - Surgical History Surgical History: Yes Surgery Procedure, Year, and Place: appendix. gallbladder. x3 - Family History Known Family History: Positive: Hypertension Negative: Cardiac Disease - Social History Alcohol Use: Rare Alcohol Amount: once a month Substance Use Type: None Substance Use Comment - Amount & Last Used: ambika Smoking Status (MU): Former Smoker Type: Cigarettes Length of Time of Smoking/Using Tobacco: 20 years Have You Smoked in the Last Year: No When Did the Patient Quit Smoking/Using Tobacco: 2007 - Immunization History Most Recent Influenza Vaccination: no up to date Most Recent Tetanus Shot: unsure Most Recent Pneumonia Vaccination: none Review of Systems All Other Systems Reviewed And Are Negative: Yes Constitutional: Positive: Fever, Chills ENT: Positive: Sore Throat, Sinus Congestion Respiratory: Positive: Cough Physical Exam Triage Information Reviewed: Yes Appearance: Well-Appearing Vital Signs: Initial Vital Signs Temp 98.7 F 11/16/18 08:38 Pulse 88 11/16/18 08:38 Resp 16 11/16/18 08:38 BP 173/106 11/16/18 08:38 Pulse Ox 98 11/16/18 08:38 Vital Signs Reviewed: Yes Eyes: Positive: Conjunctiva Clear ENT: Positive: Pharyngeal erythema, Nasal congestion Dental Exam: Normal Neck exam: Normal Neck: Positive: Supple Respiratory: Positive: Other: - diminished breath sounds. Faint wheeze and rhonchi on left. No increase in work of breathing. Cardiovascular: Positive: RRR, No Murmur Diagnostics - Radiology cxr Radiology Interpretation Completed By: Radiologist Summary of Radiographic Findings: no acute cardiopulmonary disease Course/Dx - Course Course Of Treatment: This is a 52 yr old with PMHX of RAD and HTN who presents with cough and congestion Assessment Mildly ill appearing Flu: Negative CXR: Negative Dx: Viral syndrome, Reactive airway disease Plan Recommend using inhaler as directed Start steroid dose pack Use tessalon pearles as directed as needed for cough If symptoms persist or worsen, call your primary for further evaluation or return to urgent care Recommend taking your blood pressure medications. If it remains elevated, follow up with your PCP - Diagnoses Provider Diagnosis: Viral syndrome, Reactive airway disease Discharge - Sign-Out/Discharge Documenting (check all that apply): Patient Departure All imaging exams completed and their final reports reviewed: Yes - Discharge Plan Condition: Good Disposition: HOME Prescriptions: Albuterol HFA INHALER* [Ventolin HFA Inhaler*] 2 puff INH Q4H PRN #1 mdi PRN Reason: Cough Benzonatate CAP* [Tessalon 100 MG CAP*] 200 mg PO TID PRN #30 cap PRN Reason: Cough methylPREDNISolone [Medrol] 4 mg PO .SEE GIANCARLO INSTRUCTION #1 tab.ds.pk Spacer/Holding Chamber (NF) [Easivent CHAMBER (NF)] 1 applic INH Q4H PRN #1 device PRN Reason: Cough Patient Education Materials: Viral Syndrome (ED), Reactive Airways Disease (ED) Forms: *Work Release Referrals: Anjel BENÍTEZ,Muna Handley [Primary Care Provider] - Additional Instructions: Recommend using inhaler as directed Start steroid dose pack Use tessalon pearles as directed as needed for cough If symptoms persist or worsen, call your primary for further evaluation or return to urgent care Recommend taking your blood pressure medications. If it remains elevated, follow up with your PCP - Billing Disposition and Condition Condition: GOOD Disposition: Home
[2018-11-16 09:14] LABS: Influenza A Molecular NEGATIVE (Negative); Influenza B Molecular NEGATIVE (Negative)
== END 2018-11-16 09:48 | disposition home or self-care (01) ==
LOC: UCEAST 08:31
DX: J45.901 Unspecified asthma with (acute) exacerbation (principal); B34.9 Viral infection, unspecified; I10 Essential (primary) hypertension; Z79.899 Other long term (current) drug therapy; Z87.891 Personal history of nicotine dependence
CPT/HCPCS: 71046; 99212; G0463

== ENCOUNTER 2019-03-29 23:33 | Emergency (ER) | payer OTHER ==
--- OUTSIDE RECORDS SUMMARY | 2019-03-29 23:43 | XMS REPORT | Continuity of Care Document ---
:1965 External Reference #:[id number] Author Name Antione Perez DO, MPH Address 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 ETOH Use Occasionally consumes alcohol Tobacco Use Start: Unknown End: Patient is a former smoker Unknown Recreational Drug Use Denies Drug Use Smoking Status Reviewed: 03/15/19 Patient is a former smoker Allergies, Adverse Reactions, Alerts Description No Known Drug Allergies Medications Active Medications SIG Qnty Indications Ordering Provider Date Flector si apply to 10units Antione Perez DO, 06/27/2018 1.3% Patches affected area MPH every 12 hours chronic pain patient Tizanidine HCL si/2-1 by 30tabs Antione Perez DO, 01/20/2018 4mg mouth every night MPH Tablets Oxycodone HCL si by mouth 90tabs G89.29 Antione Perez DO, 03/15/2017 5mg every 8 hours as MPH Tablets directed chronic pain patient, G89.29, M54.5 M54.5 M54.2 Labetalol HCL 200mg 1 by mouth twice daily Unknown Tablets Nifedipine ER 90mg 1 by mouth daily Unknown Tablets ER 24HR History Medications Cyclobenzaprine HCL si2- 1 by 30tabs Antione Perez, 04/12/2017 - 5mg mouth every DO, MPH 01/20/2018 Tablets evening hours as directed chronic pain. Tizanidine HCL si2-1 by 30tabs Antione Perez, 03/29/2017 - 4mg Tablets mouth qpm as DO, MPH 04/12/2017 directed Metoprolol Succinate ER 1 by mouth every Unknown - 25mg day 10/05/2018 Tablets ER 24HR Oxycodone-Acetaminophen si by mouth Unknown - in the morning 03/15/2017 5-325mg Tablets and 2 by mouth at night Vital Signs Date Vital Result Comment 03/15/2019 3:17pm BP Systolic 148 mmHg BP Diastolic 86 mmHg Heart Rate 82 /min Respiratory Rate 20 /min Height 60 inches 5'0" Weight 148.00 lb Pain Level 5 Pain at this time. Pain Level With Medicine 4 on average with meds Pain Level Without Medicine 3 without meds BMI (Body Mass Index) 28.9 kg/m2 11/02/2018 3:39pm BP Systolic 136 mmHg BP [...] Pain Level Without Medicine 05/31 without meds Pain Level After Procedure [...] meds BMI (Body Mass Index) 28.7 kg/m2 Procedures Date Code Description Status 10/05/2018 31599 Omt 3-4 Body Regions Completed 10/05/2018 12779 Test Autonomic Nervous System, Sudomotor Completed 10/05/2018 79462 Test Autonomic Nervous System, Cardiovagal Innervation Completed 06/27/2018 85156 Omt 5-6 Body Regions Completed 05/15/2018 89682 Omt 3-4 Body Regions Completed 03/23/2018 30832 Omt 3-4 Body Regions Completed 02/21/2018 57806 Omt 3-4 Body Regions Completed 10/10/2017 97719 Omt 3-4 Body Regions Completed 08/11/2017 11982 Omt 3-4 Body Regions Completed 06/14/2017 92152 Test Autonomic Nervous System, Sudomotor Completed 05/12/2017 90815 Omt 1-2 Body Regions Completed 05/12/2017 57322 Inject Tendon/Ligament Completed 04/12/2017 17023 Omt 3-4 Body Regions Completed Encounters Type Date Location Provider Dx Diagnosis Office Visit 11/02/2018 Main Office as Of Antione Perez DO G89.29 Other chronic pain 4:00p 09/22/13 MPH M54.5 Low back pain M54.6 Pain in thoracic spine M54.2 Cervicalgia M25.552 Pain in left hip M25.551 Pain in right hip G90.3 Multi-system degeneration of the autonomic nervous system Z79.891 shelter (current) use of opiate analgesic Office Visit 10/05/2018 3:45p Main Office as Antione Perez G89.29 Other chronic Of 09/22/13 DO, MPH pain M54.5 Low back pain M99.03 Segmental and somatic dysfunction of lumbar region M99.01 Segmental and somatic dysfunction of cervical region M54.6 Pain in thoracic spine M99.02 Segmental and somatic dysfunction of thoracic region G90.3 Multi-system degeneration of the autonomic nervous system Z79.891 shelter (current) use of opiate analgesic Office Visit 08/29/2018 3:30p Main Office as Antione Perez G89.29 Other chronic Of 09/22/13 DO, MPH pain M54.5 Low back pain M54.2 Cervicalgia M25.552 Pain in left hip M25.551 Pain in right hip M25.521 Pain in right elbow Z79.891 shelter (current) use of opiate analgesic Office Visit 07/27/2018 3:30p Main Office as Antione Perez, G89.29 Other chronic Of 09/22/13 DO, MPH pain M54.2 Cervicalgia M54.5 Low back pain M53.3 Sacrococcygeal disorders, not elsewhere classified M25.552 Pain in left hip M25.551 Pain in right hip Z79.891 shelter (current) use of opiate analgesic Office Visit 06/27/2018 3:45p Main Office as Antione Perez, G89.29 Other [...] hip M25.551 Pain in right hip 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 M99.05 Segmental [...] and somatic dysfunction of upper extremity Z79.891 shelter (current) use of opiate analgesic Office Visit 04/27/2018 3:45p Main Office as Antione Perez, G89.29 Other chronic Of 09/22/13 DO, MPH pain M54.2 Cervicalgia M54.6 Pain in thoracic spine M54.5 Low back pain Z79.891 shelter (current) use of opiate analgesic Office Visit 03/23/2018 11:00a Main Office as Antione Perez, G89.29 Other chronic Of 09/22/13 DO, MPH pain M54.2 Cervicalgia M99.01 Segmental and somatic dysfunction of cervical region M54.5 Low back pain M99.03 Segmental and somatic dysfunction of lumbar region M54.6 Pain in thoracic spine M99.02 Segmental and somatic dysfunction of thoracic region Z71.89 Other specified counseling Z79.891 shelter (current) use of opiate analgesic Office Visit 02/21/2018 10:30a Main Office as Antione Perez G89.29 Other chronic Of 09/22/13 DO, MPH pain M54.2 Cervicalgia M99.01 Segmental and somatic dysfunction of cervical region M54.6 Pain in thoracic spine M99.02 Segmental and somatic dysfunction of thoracic region M54.5 Low back pain M99.03 Segmental and somatic dysfunction of lumbar region R53.83 Other fatigue Z79.891 shelter (current) use of opiate analgesic Z71.89 Other specified counseling Office Visit 01/20/2018 11:15a Main Office as Antione Perez G89.29 Other chronic Of 09/22/13 DO, MPH pain M54.2 Cervicalgia M54.6 Pain in thoracic spine M25.511 Pain in right shoulder M79.1 Myalgia Z71.89 Other specified counseling 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 Office Visit 12/21/2017 11:15a Main Office as Antione Perez G89.29 Other chronic Of 09/22/13 DO, MPH pain M54.2 Cervicalgia M54.6 Pain in thoracic spine Z71.89 Other specified counseling Z79.891 shelter (current) use of opiate analgesic Office Visit 11/09/2017 9:45a Main Office as Antione Perez G89.29 Other chronic Of 09/22/13 DO, MPH pain M54.2 Cervicalgia M54.6 Pain in thoracic spine M77.11 Lateral epicondylitis, right elbow Z79.891 shelter (current) use of opiate analgesic Office Visit 10/10/2017 9:30a Main Office as Antione Perez G89.29 Other chronic Of 09/22/13 DO, MPH pain M54.2 Cervicalgia M99.01 Segmental and somatic dysfunction of cervical region M54.6 Pain in thoracic spine M99.02 Segmental and somatic dysfunction of thoracic region M54.5 Low back pain M99.03 Segmental and somatic dysfunction of lumbar region M77.11 Lateral epicondylitis, right elbow 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 Office Visit 09/09/2017 10:45a Main Office as Antione Perez G89.29 Other chronic Of 09/22/13 DO, MPH pain M54.2 Cervicalgia M54.6 Pain in thoracic spine M79.1 Myalgia M54.5 Low back pain 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 Office Visit 08/11/2017 9:15a Main Office as Antione Perez G89.29 Other chronic Of 09/22/13 DO, MPH pain M54.2 Cervicalgia M99.01 Segmental and somatic dysfunction of cervical region M54.6 Pain in thoracic spine M99.02 Segmental and somatic dysfunction of thoracic region M25.512 Pain in left shoulder M99.07 Segmental and somatic dysfunction of upper extremity M79.1 Myalgia M54.5 Low back pain Z79.891 shelter (current) use of opiate analgesic Office Visit 07/13/2017 9:15a Main Office as Antione Perez G89.29 Other chronic Of 09/22/13 DO, MPH pain M54.5 Low back pain M79.604 Pain in right leg M54.2 Cervicalgia Z79.891 shelter (current) use of opiate analgesic Office Visit 06/14/2017 9:00a Main Office as Antione Perez G89.29 Other chronic Of 09/22/13 DO, MPH pain M54.5 Low back pain M77.11 Lateral epicondylitis, right elbow 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6 Pain in thoracic spine M99.02 Segmental and somatic dysfunction of thoracic region M54.2 Cervicalgia M62.830 Muscle spasm of back M77.11 Lateral epicondylitis, right elbow Z71.89 Other specified counseling Office Visit 03/29/2017 10:30a Main Office as Antione Perez G89.29 Other chronic Of 09/22/13 DO, MPH pain M54.5 Low back pain M79.604 Pain in right leg M79.605 Pain in left leg M54.16 Radiculopathy, lumbar region Z79.891 shelter (current) use of opiate analgesic Office Visit 03/15/2017 9:00a Main Office as Antione Perez G89.29 Other chronic Of 09/22/13 DO, MPH pain M54.5 Low back pain E11.8 Type 2 diabetes mellitus with unspecified complications M79.604 Pain in right leg M79.605 Pain in left leg M54.16 Radiculopathy, lumbar region Z71.89 Other specified counseling Z71.3 Dietary counseling and surveillance Z79.891 shelter (current) use of opiate analgesic Plan of Treatment Future Appointment(s):04/16/2019 3:00 pm - Antione Perez DO, MPH at Main Office as Of 09/22/1406 - Antione Perez DO, MPHG89.29 Other chronic [...] current medical pain management.M25.552 Pain in left hipM25.551 Pain in right hipComments: Chronic. Symptoms and complaints discussed and reviewed today. No significant changes in physical findings. Continue current medical pain management.Z79.891 shelter (current) use of opiate analgesicNew Labs:Urine Drug Screen, Ordered: 03/15/19Comments:Urine drug screen sample taken today to monitor opiate use and to monitor use of illicit substances.Will discuss results at next appointment.The following tests were ordered:6 AM, AMPH, ALEXSANDRA, EDIN, BUP, CARIS , COCM, COT, ETG, FENT, MCSHSG, OPI, OXY, [...] controlled substances and is considered standard of care.G90.3 Multi-system degeneration of the autonomic nervous systemComments: Sudomotor test report reviewed with the patient today. The test was Positive for possible autonomicdysfunction at this time. Will follow effects of pain and current medical treatment. Future testingwill help to monitor the effects of chronic illness, pain and subsequent treatment on the autonomic nervous system. May retest in 3-6 monthsAlpha lipoic acid 100 - 200 mg tid. suggested to patient. This has been shown to help with the neuropathic component of pain and autonomic dysfunction.AllComments:Continue current medical pain management; injection therapy, osteopathic manipulation, PT / modalities, and consults as needed to manage chronic pain.Non - opioid pain management discussed and optionsdiscussed.Side effects discussed; anticipatory guidance given. Patient clearly understand and agree with all medical treatments and suggestions. All medicines prescribed are adequate and appropriate for this patient's complaint of pain, medical history, physical, and personal goals.Goals of Treatment are to provide adequate and appropriate multidisciplinary medical pain management to increase/ maintain patient's quality of life and functionality while maintaining satisfactory side effect profile andminimizing care home end-organ damage. Importance of regular nutrition throughout the day discussed.Activity as toleratedContinue with PCP
[2019-03-30] MEDS ORDERED: Clindamycin CAP* 150 MG PO ONE (02:49)
[2019-03-30] MEDS ORDERED: Ketorolac INJ* 30 MG/ML 1 ML VIAL IM ONE (02:49)
[2019-03-30] MEDS ORDERED: oxyCODONE/Acetamin 5/325 MG* TAB PO ONE (02:49)
--- NOTE | 2019-03-30 02:50 | ED ---
Throat Pain/Nasal Congestion - HPI Summary HPI Summary: Patient is a 53 y/o F presenting to ED with complaints of pain above right upper incisor that radiates to her right sinus area. Pain onset yesterday morning. She denies fever but reports difficulty with eating. On triage, pain is rated 8/10. Home medications and allergies are reviewed. - History of Current Complaint Chief Complaint: EDDentalPain Time Seen by Provider: 03/30/19 02:41 Hx Obtained From: Patient Onset/Duration: Lasting Days, Still Present Severity: Severe Associated Signs And Symptoms: Positive: Negative Cough: None - Allergies/Home Medications Allergies/Adverse Reactions: Allergies Allergy/AdvReac Type Severity Reaction Status Date / Time No Known Allergies Allergy Verified 03/29/19 23:37 Home Medications: Home Medications Metoprolol Succinate 200 mg PO DAILY 03/30/19 [History Confirmed 03/30/19] PMH/Surg Hx/FS Hx/Imm Hx Endocrine/Hematology History: Reports: Hx Diabetes - Pre-diabetic- on meds, Other Endocrine/Hematological Disorders - Hypokalemia Denies: Hx Anticoagulant Therapy, Hx Thyroid Disease Cardiovascular History: Reports: Hx Hypertension Denies: Hx Congestive Heart Failure, Hx Deep Vein Thrombosis, Hx Hypercholesterolemia, Hx Myocardial Infarction, Hx Pacemaker/ICD, Hx Peripheral Vascular Disease Respiratory History: Reports: Hx Asthma, Hx Chronic Bronchitis, Hx Seasonal Allergies, Other Respiratory Problems/Disorders - Sinusitis Denies: Hx Chronic Obstructive Pulmonary Disease (COPD), Hx Lung Cancer, Hx Pneumonia, Hx Pulmonary Embolism GI History: Denies: Hx Gall Bladder Disease, Hx Gastrointestinal Bleed, Hx Ulcer, Hx Urosepsis History: Reports: Hx Kidney Stones - " Denies: Hx Renal Disease Musculoskeletal History: Reports: Hx Arthritis, Hx Back Problems Denies: Hx Rheumatoid Arthritis, Hx Osteoporosis Sensory History: Denies: Hx Cataracts, Hx Contacts or Glasses, Hx Glaucoma, Hx Hearing Aid Opthamlomology History: Denies: Hx Cataracts, Hx Contacts or Glasses, Hx Glaucoma Neurological History: Reports: Hx Headaches Denies: Hx Dementia - "long time ago.", Hx Migraine, Hx Seizures, Hx Transient Ischemic Attacks (TIA) Psychiatric History: Denies: Hx Anxiety, Hx Depression, Hx Panic Disorder, Hx Schizophrenia, Hx Bipolar Disorder - Cancer History Hx Chemotherapy: No Hx Radiation Therapy: No - Surgical History Surgery Procedure, Year, and Place: appendix. gallbladder. x3 Infectious Disease History: No Infectious Disease History: Denies: Hx Clostridium Difficile, Hx Hepatitis, Hx Human Immunodeficiency Virus (HIV), Hx of Known/Suspected MRSA, Hx Shingles, Hx Tuberculosis, Hx Known/ Suspected VRE, Hx Known/Suspected VRSA, History Other Infectious Disease, Traveled Outside the [place] in Last 30 Days - Family History Known Family History: Positive: Hypertension Negative: Cardiac Disease - Social History Alcohol Use: Rare Alcohol Amount: once a month Substance Use Type: Reports: None Substance Use Comment - Amount & Last Used: norco Smoking Status (MU): Former Smoker Type: Cigarettes Length of Time of Smoking/Using Tobacco: 20 years Have You Smoked in the Last Year: No Review of Systems Negative: Fever Positive: Dental Pain - w/ difficulty eating and radiation of pain to right sinus area All Other Systems Reviewed And Are Negative: Yes Physical Exam - Summary Physical Exam Summary: VITAL SIGNS: Reviewed. GENERAL: Patient is a well-developed and nourished female who is lying comfortable in the stretcher. Patient is not in any acute respiratory distress. HEAD AND FACE: No signs of trauma. No ecchymosis, hematomas or skull depressions. No sinus tenderness. EYES: PERRLA, EOMI x 2, No injected conjunctiva, no nystagmus. EARS: Hearing grossly intact. Ear canals and tympanic membranes are within normal limits. MOUTH: Oropharynx within normal limits. Tenderness over gum over the right upper incisor. NECK: Supple, trachea is midline, no adenopathy, no JVD, no carotid bruit, no c- spine tenderness, neck with full ROM CHEST: Symmetric, no tenderness at palpation LUNGS: Clear to auscultation bilaterally. No wheezing or crackles. CVS: Regular rate and rhythm, S1 and S2 present, no murmurs or gallops appreciated. ABDOMEN: Soft, non-tender. No signs of distention. No rebound no guarding, and no masses palpated. Bowel sounds are normal. EXTREMITIES: FROM in all major joints, no edema, no cyanosis or clubbing. NEURO: Alert and oriented x 3. No acute neurological deficits. Speech is normal and follows commands. SKIN: Dry and warm Triage Information Reviewed: Yes Vital Signs On Initial Exam: Initial Vitals Temp Pulse Resp BP Pulse Ox 97.6 F 80 16 182/116 98 03/29/19 23:35 03/29/19 23:35 03/29/19 23:35 03/29/19 23:35 03/29/19 23:35 Vital Signs Reviewed: Yes Diagnostics - Vital Signs Vital Signs Temp Pulse Resp BP Pulse Ox 03/30/19 01:45 97.6 F 46 16 155/92 98 03/29/19 23:35 97.6 F 80 16 182/116 98 - Laboratory Lab Statement: Any lab studies that have been ordered have been reviewed, and results considered in the medical decision making process. EENT Course/Dx - Course Course Of Treatment: Patient is a 53 y/o F presenting to ED with complaints of pain above right upper incisor that radiates to her right sinus area. Pain onset yesterday morning. She denies fever but reports difficulty with eating. On physical exam, patient is noted to have tenderness over gum over the right upper incisor. During ED course, patient was given Percocet 5/325 tab, toradol 30 mg IM, and clindamycin 300 mg PO. Patient discharged to home with clindamycin and motrin prescription and was instructed to follow up with dentist. - Diagnoses Provider Diagnoses: Gingivitis Discharge ED - Sign-Out/Discharge Documenting (check all that apply): Patient Departure - discharge Patient Received Moderate/Deep Sedation with Procedure: No - Discharge Plan Condition: Stable Disposition: HOME Prescriptions: Clindamycin Cap(NF) [Clindamycin Cap 300 mg Cap(NF)] 300 mg PO Q6H #30 cap Ibuprofen TAB* [Motrin TAB* 800 MG] 800 mg PO Q6H PRN #30 tab PRN Reason: Pain - Moderate Patient Education Materials: Gingivitis (ED) Referrals: Care [facility] [Outside] - 3 Days Muna Hobbs PA [Primary Care Provider] - 3 Days Additional Instructions: PLEASE RETURN TO ED FOR ANY NEW OR WORSENING SYMPTOMS. FOLLOW UP WITH YOUR DENTIST WITHIN THREE DAYS. - Billing Disposition and Condition Condition: STABLE Disposition: Home - Attestation Statements Document Initiated by Scribe: Yes Documenting Scribe: LIZZIE NEGRON Provider For Whom Scribe is Documenting (Include Credential): MANJINDER TEJEDA MD Scribe Attestation: LIZZIE Samuels, scribed for MANJINDER TEJEDA MD on 04/16/19 at 0342. Scribe Documentation Reviewed: Yes Provider Attestation: The documentation as recorded by the scribe, LIZZIE NEGRON accurately reflects the service I personally performed and the decisions made by me, MANJINDER TEJEDA MD Status of Scribe Document: Viewed
[2019-03-30 03:29] VITALS: BP 204/108
== END 2019-03-30 03:37 | disposition home or self-care (01) ==
LOC: ED 23:33
DX: K08.89 Other specified disorders of teeth and supporting structures (principal); R73.03 Prediabetes; E87.6 Hypokalemia; I10 Essential (primary) hypertension; J45.909 Unspecified asthma, uncomplicated; Z87.891 Personal history of nicotine dependence; Z79.899 Other long term (current) drug therapy
CPT/HCPCS: 96372; 99282; A9270-GY; J1885

== ENCOUNTER 2021-01-12 13:23 | Inpatient (IN) ==
[2021-01-12 15:27] LABS: ABS Basophils 0.1 10^3/ul (0-0.2); ABS Eosinophils 0.1 10^3/ul (0-0.6); ABS Lymphocytes 2.9 10^3/ul (1.0-4.8); ABS Monocytes 0.8 10^3/ul (0-0.8); ABS Neutrophils 5.6 10^3/ul (1.5-7.7); Eosinophil % 1.5 %; Hematocrit 46 % (35-47); Hemoglobin 15.6 g/dL (12.0-16.0); Lymphocyte % 30.9 %; Mean Corpuscular HGB Conc 34 g/dL (31-36); Mean Corpuscular Hemoglobin 31 pg (27-31); Mean Corpuscular Volume 91 fL (80-97); Mean Platelet Volume 8.8 fL (7.4-10.4); Platelet Count 252 10^3/uL (150-450); Red Blood Count 5.06 10^6 /uL (3.70-4.87); Red Cell Distribution Width 13 % (10-15); White Blood Count 9.5 10^3/uL (3.5-10.8)
[2021-01-12 15:41] LABS: Albumin 4.7 g/dL (3.2-5.2); Albumin/Globulin Ratio 1.3 (1-3); C Reactive Protein 9.17 mg/L (<8.01); Calcium 10.1 mg/dL (8.6-10.3); EGFR African American 105.1 (>60); EGFR Non-African American 86.9 (>60); Globulin 3.5 g/dL (2-4); Potassium 3.1 mmol/L (3.5-5.0); Total Bilirubin 0.8 mg/dL (0.2-1.0); Total Protein 8.2 g/dL (6.4-8.9)
[2021-01-12] MEDS ORDERED: Morphine 4 MG/ML VIAL (1 ml) IV ONE (20:42)
[2021-01-12] MEDS ORDERED: Ondansetron 4 mg VIAL 2 MG/ML 2 ml VIAL IV ONE (20:42)
[2021-01-12] MEDS ORDERED: Potassium Chlor 20 meq TAB.ER PO ONE ×2 (21:13→22:30)
[2021-01-12] MEDS ORDERED: Enoxaparin 40 MG/0.4 ML SYR SUBCUT SCH (22:00)
[2021-01-12 22:39] LABS: Urine Appearance Clear; Urine Bilirubin Negative (Negative); Urine Blood 1+ (Negative); Urine Color Yellow; Urine Glucose 3+(>=500 mg/dL) (Negative); Urine Ketones Trace (Negative); Urine Nitrite Negative (Negative); Urine Protein Negative (Negative); Urine Specific Gravity 1.016 (1.002-1.030); Urine Urobilinogen Negative (Negative)
[2021-01-12 22:44] LABS: Urine Bacteria Absent (Absent); Urine Red Blood Cell Trace(0-2/hpf) (Absent); Urine White Blood Cell Trace(0-5/hpf) (Absent)
[2021-01-12] MEDS ORDERED: Dextrose 50% Syringe 50 ml 25 GM/50 ML SYRINGE IV PUSH PRN (23:38)
[2021-01-13] MEDS: Enoxaparin 40 MG/0.4 ML SYR SUBCUT SCH (02:02)
[2021-01-13] MEDS: Potassium Chlor 10 meq TAB PO SCH (08:36)
[2021-01-13] MEDS ORDERED: Polyethylene Glycol 3350 17 GM PACKET PO PRN (08:50)
[2021-01-13] MEDS ORDERED: DAPAGLIFLOZIN 10 MG TAB (NF) PO SCH (09:00)
[2021-01-13] MEDS: Magnesium Hydroxide LIQ 30 ML UDC PO SCH ×2 (09:21→21:09)
[2021-01-13] MEDS: Polyethylene Glycol 3350 17 GM PACKET PO SCH (09:21)
[2021-01-14] MEDS: Enoxaparin 40 MG/0.4 ML SYR SUBCUT SCH (01:09)
[2021-01-14 06:05] LABS: C Reactive Protein 11.05 mg/L (<8.01); Calcium 9.1 mg/dL (8.6-10.3); EGFR African American 110.6 (>60); EGFR Non-African American 91.4 (>60); Potassium 3.6 mmol/L (3.5-5.0)
[2021-01-14] MEDS: Magnesium Hydroxide LIQ 30 ML UDC PO SCH (09:11)
[2021-01-14] MEDS: Potassium Chlor 10 meq TAB PO SCH (09:13)
[2021-01-14] MEDS: Polyethylene Glycol 3350 17 GM PACKET PO SCH (09:14)
[2021-01-14] MEDS ORDERED: Sodium Phosphate ADULT ENEMA 133 ML BTL PR ONE (10:27)
[2021-01-14] MEDS ORDERED: Senna TAB 8.6 mg TAB PO PRN (10:36)
[2021-01-14 11:16] VITALS: BP 129/87
[2021-01-14] MEDS ORDERED: Polyethylene Glycol 3350 17 GM PACKET PO SCH (21:00)
== END 2021-01-14 17:40 | disposition home health service (06) | DRG 347 ==
LOC: ED 13:23 → SSU 23:36
PROVIDERS: ADMIT Internal Medicine; ATTEND Internal Medicine